=== PATIENT | male | born 1950 | race Caucasian/White ===

== ENCOUNTER → 2017-06-17 | Outpatient (CLI) | payer MEDICARE | END | disposition home or self-care (01) | LOC: CFH 07:49 | PROVIDERS: ATTEND Internal Medicine Cardiovascular Disease | DX: I25.89 Other forms of chronic ischemic heart disease (principal) | CPT/HCPCS: 78452; 93017; A9502 ==

== ENCOUNTER 2017-07-03 06:23 | Day surgery (SDC) | payer MEDICARE ==
[2017-07-02 15:48] VITALS: BP 162/96
[2017-07-02 16:06] LABS: BASOPHILS # (AUTO) 0.03 x10^3/uL (0-0.1); BASOPHILS % (AUTO) 0 % (0-1); EOSINOPHILS # (AUTO) 0.16 x10^3/uL (0-0.4); EOSINOPHILS % (AUTO) 2 % (1-7); LYMPHOCYTES # (AUTO) 2.43 x10^3/uL (1-3.4); LYMPHOCYTES % (AUTO) 28 % (22-44); MD NO; MEAN CORPUSCULAR HEMOGLOBIN 27.2 pg (27.5-34.5); MEAN CORPUSCULAR HGB CONC 32.7 g/dL (33.2-36.2); MEAN PLATELET VOLUME 8.3 fL (7.4-10.4); MONOCYTES # (AUTO) 0.78 x10^3/uL (0.2-0.8); MONOCYTES % (AUTO) 9 % (2-9); NEUTROPHILS % (AUTO) 61 % (42-75); PLATELET COUNT 198 x10^3/uL (130-400); RED BLOOD COUNT 5.55 x10^6/uL (4.38-5.82); RED CELL DISTRIBUTION WIDTH 14.4 % (9.4-14.8)
[2017-07-02 16:16] LABS: ALANINE AMINOTRANSFERASE 38 U/L (12-78); ALBUMIN 3.9 g/dL (3.4-5.0); ANION GAP 5 mmol/L (5-15); CHLORIDE 107 mmol/L (98-107)
[2017-07-02 16:19] LABS: ALKALINE PHOSPHATASE 69 U/L (45-117); BILIRUBIN,TOTAL 0.3 mg/dL (0.2-1.0); CREATININE 0.86 mg/dL (0.7-1.3); TOTAL PROTEIN 7.1 g/dL (6.4-8.2)
[~2017-07-03] VITALS: Ht 172.7 cm; Wt 88.6 kg
[~2017-07-03 06:23] MED LIST: ALBU0.63 NEB; ASPI-496 PO; BECL8.7A7 INH
[2017-07-03] MEDS ORDERED: VERAPAMIL 2.5 MG/ML, 2ML ONE (07:40)
[2017-07-03] MEDS ORDERED: MIDAZOLAM 1 MG/ML, 2ML ONE ×3 (07:40→08:06)
[2017-07-03] MEDS ORDERED: FENTANYL PF 100 MCG/2ML ONE (07:40)
[2017-07-03] MEDS ORDERED: HEPARIN 1,000 UNITS/ML, 10ML ONE (07:40)
[2017-07-03] MEDS ORDERED: LIDOCAINE 2%, 20ML ONE (07:40)
[2017-07-03] MEDS ORDERED: TICAGRELOR 90 MG TABLET ONE (07:45)
[2017-07-03] MEDS ORDERED: BIVALIRUDIN 250 MG ONE (07:45)
[2017-07-03] MEDS ORDERED: ASPIRIN 81 MG TABLET EC PO SCH (09:00)
== END 2017-07-03 11:24 | disposition home or self-care (01) ==
LOC: CACL 06:23
PROVIDERS: ATTEND Internal Medicine Cardiovascular Disease
DX: I25.10 Atherosclerotic heart disease of native coronary artery without angina pectoris (principal); F10.10 Alcohol abuse, uncomplicated; Z82.49 Family history of ischemic heart disease and other diseases of the circulatory system; E78.4 Other hyperlipidemia; Z79.82 Long term (current) use of aspirin; Z79.899 Other long term (current) drug therapy
CPT/HCPCS: 36415; 80053; 85025; 93458; 99156; C1769; C1894; J1644; J2250; J3010; J3490; Q9967; J0583

== ENCOUNTER 2020-01-30 08:50 | Emergency (ER) | payer OTHER, MEDICARE ==
[~2020-01-30] VITALS: Ht 172.7 cm; Wt 92.6 kg
--- NOTE | 2020-01-30 09:18 | NUR ---
pt presents to ED with c/o left sided facial numbness first noticed yesterday upon awakening. pt denies focal weakness , pt's left arm and grasp is weaker than right at baseline d/t old injury, pt states this feels at baseline strength today. pt is a&o, repss even and unlabored, pupils equal, round and reactive. no drift noted. bilateral leg strength equal, face symmetrical. left grasp and arm weaker than right. pt seen and examined by HUEY Polanco, CT ordered. pt transported to CT at this time.
--- NOTE | 2020-01-30 10:00 | NUR ---
all monitors in place, pt is NSR on ekg monitor tech with no ectopy. pt a&o, resps even and unlabored. no change in status. pt updated with POC for MRI. pt clarified he had surgery and "plastic implant to neck", states this is not metal. pt denies any other implants, jewelery, medication patches. pt undressed completely, belongings in bag. pt taken to MRI, heating and cooling technician notified of "plastic implant in neck". pt denies claustrophobia. pt taken to MRI at this time, milad.
--- NOTE | 2020-01-30 10:27 | NUR ---
pt back from MRI.
[2020-01-30 11:04] VITALS: BP 122/70
--- NOTE | 2020-01-30 11:07 | NUR ---
discharge orders received, pt given dc instructions. pt is a&o, resps even and unlabored, nsr on groundwater monitoring technician. pt has no complaint at dc. pt ambulatory to dc desk with steady gait, all questions answered.
== END 2020-01-30 11:08 | disposition home or self-care (01) ==
LOC: ED 09:55
DX: R20.2 Paresthesia of skin (principal); I45.10 Unspecified right bundle-branch block
CPT/HCPCS: 70450; 70551; 93005; 99285

== ENCOUNTER 2020-02-20 12:17 | Emergency (ER) | payer MEDICARE, OTHER ==
[~2020-02-20] VITALS: Ht 172.7 cm; Wt 89.0 kg
[2020-02-20 12:49] VITALS: BP 157/78
[2020-02-20 13:11] LABS: BASOPHILS # (AUTO) 0.03 x10^3/uL (0-0.1); BASOPHILS % (AUTO) 0 % (0-1); EOSINOPHILS # (AUTO) 0.06 x10^3/uL (0-0.4); EOSINOPHILS % (AUTO) 1 % (1-7); LYMPHOCYTES # (AUTO) 2.16 x10^3/uL (1-3.4); LYMPHOCYTES % (AUTO) 18 % (22-44); MD NO; MEAN CORPUSCULAR HEMOGLOBIN 27.6 pg (27.5-34.5); MEAN CORPUSCULAR HGB CONC 32.7 g/dL (33.2-36.2); MEAN CORPUSCULAR VOLUME 84.4 fL (81-97); MEAN PLATELET VOLUME 8.3 fL (7.4-10.4); MONOCYTES # (AUTO) 1.12 x10^3/uL (0.2-0.8); MONOCYTES % (AUTO) 9 % (2-9); NEUTROPHILS % (AUTO) 72 % (42-75); PLATELET COUNT 207 x10^3/uL (130-400); RED BLOOD COUNT 5.74 x10^6/uL (4.38-5.82); RED CELL DISTRIBUTION WIDTH 13.9 % (9.4-14.8)
[2020-02-20 14:01] LABS: ALBUMIN 3.7 g/dL (3.4-5.0); ANION GAP 9 mmol/L (5-15); CHLORIDE 104 mmol/L (98-107)
[2020-02-20 14:04] LABS: ALANINE AMINOTRANSFERASE 33 U/L (12-78); ALKALINE PHOSPHATASE 72 U/L (45-117); BILIRUBIN,TOTAL 0.8 mg/dL (0.2-1.0); CREATININE 1.05 mg/dL (0.7-1.3); TOTAL PROTEIN 7.7 g/dL (6.4-8.2)
--- NOTE | 2020-02-20 14:16 | NUR ---
Pt c/o RLQ AND LLQ abdominal pain and blood in urine for "a few days". Provided UA cup. Pt ambulates with steady gait and balance.
[2020-02-20] MEDS ORDERED: MORPHINE SULFATE 4 MG/ML, 1ML ONE ×2 (14:59→15:57)
[2020-02-20] MEDS ORDERED: ONDANSETRON 2MG/ML, 2ML ONE (14:59)
[2020-02-20] MEDS ORDERED: SODIUM CHLORIDE FLUSH 10ML SYR IVF ONE (15:00)
[2020-02-20] MEDS ORDERED: ONDANSETRON 2MG/ML, 2ML IVPush ONE (15:00)
[2020-02-20] MEDS ORDERED: SODIUM CHLORIDE 0.9% 1,000ML IVBOLUS ONE (15:00)
[2020-02-20] MEDS: MORPHINE SULFATE 4 MG/ML, 1ML IVPush PRN ×2 (15:16→16:00)
[2020-02-20 15:34] LABS: MICROSCOPIC INDICATED
[2020-02-20 16:13] LABS: CALCIUM 10.1 mg/dL (8.5-10.1)
[2020-02-20] MEDS ORDERED: KETOROLAC 30 MG/1 ML ONE (16:16)
[2020-02-20] MEDS ORDERED: KETOROLAC 30 MG/1 ML IVPush ONE (16:30)
== END 2020-02-20 17:05 | disposition home or self-care (01) ==
LOC: ED 17:00
DX: N13.2 Hydronephrosis with renal and ureteral calculous obstruction (principal); I10 Essential (primary) hypertension; J45.909 Unspecified asthma, uncomplicated
CPT/HCPCS: 36415; 74021; 74176; 80053; 81001; 85025; 96361; 96374; 96375; 96376; 99285; J1885; J2270; J2405; J7030